=== PATIENT | female | born 1960 | race Caucasian/White ===

== ENCOUNTER 2016-07-16 03:14 | Emergency (ER) | payer BC, MEDICARE ==
[2016-07-16 04:46] LABS: HEMOGLOBIN 11.6 gm/dl (12.3-15.3); RED BLOOD COUNT 4.04 M/UL (4.00-5.10); WHITE BLOOD COUNT 10.9 K/UL (4.5-11.0)
[2016-07-16 05:21] LABS: BUN/CREATININE RATIO 15 (0-10)
== END 2016-07-16 07:35 | disposition home or self-care (01) ==
LOC: ER1 03:14
PROVIDERS: Family Medicine
DX: R07.89 Other chest pain (principal); R51 Headache; M89.8X7 Other specified disorders of bone, ankle and foot; R55 Syncope and collapse; R11.0 Nausea; F17.200 Nicotine dependence, unspecified, uncomplicated; I10 Essential (primary) hypertension; Z79.899 Other long term (current) drug therapy; W19.XXXA Unspecified fall, initial encounter
CPT/HCPCS: 36415; 70450; 71010; 73630; 80053; 82550; 82553; 83874; 84484; 85025; 93005; 99285; Q9963

== ENCOUNTER 2016-07-22 11:40 | Emergency (ER) | payer BC, MEDICARE | END 2016-07-22 12:33 | disposition left against medical advice (07) | LOC: ER1 11:40 | DX: Z53.8 Procedure and treatment not carried out for other reasons (principal) | CPT/HCPCS: 93005 ==

== ENCOUNTER → 2016-07-29 | Outpatient (CLI) | payer BC, MEDICARE | END | disposition home or self-care (01) | LOC: KOH-I 13:00 | DX: M84.475A Pathological fracture, left foot, initial encounter for fracture (principal); I73.9 Peripheral vascular disease, unspecified | CPT/HCPCS: 73700; 93922; 93926 ==

== ENCOUNTER → 2016-09-21 | Outpatient (CLI) | payer BC, MEDICARE | LOC: KOH-I 15:53 | DX: M79.672 Pain in left foot (principal); S92.322D Displaced fracture of second metatarsal bone, left foot, subsequent encounter for fracture with routine healing; S92.332D Displaced fracture of third metatarsal bone, left foot, subsequent encounter for fracture with routine healing; S92.342D Displaced fracture of fourth metatarsal bone, left foot, subsequent encounter for fracture with routine healing | CPT/HCPCS: 73630 ==